=== PATIENT | male | born 1970 | race Caucasian/White ===

== ENCOUNTER 2017-11-12 09:43 | Emergency (ER) | payer OTHER ==
[2017-11-12 10:03] VITALS: BP 157/81
--- NOTE | 2017-11-12 10:10 | ED Physician Documentation ---
General Adult - HISTORIAN Historian: patient - HPI Stated Complaint: wound check possible MRSA Chief Complaint: General Adult Onset: days ago (1) Timing: still present Severity: mild Further Comments: yes (Pt is a 47 yo male with a small abscess on his L wrist. 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 ) - ROS CONST: no problems EYES/ENT: none CVS/RESP: none GI/: none NEURO/PSYCH: other (small 1 cm abscess L wrist) - PAST HX Past History: hypertension, other (MRSA) Surgeries/Procedures: cholecystectomy, other (hernia) Allergies/Adverse Reactions: Allergies Allergy/AdvReac Type Severity Reaction Status Date / Time cyclobenzaprine HCl Allergy Verified 11/12/17 10:03 [From Flexeril] erythromycin base Allergy Verified 11/12/17 10:03 Home Medications: Ambulatory Orders Medication Instructions Recorded Allopurinol [Zyloprim] 100 mg PO DAILY 11/12/17 Lisinopril [Lisinopril] 40 mg PO DAILY 11/12/17 Sulfamethoxazole/Trimethoprim 1 each PO DAILY #14 tablet 11/12/17 [Bactrim Ds] Valacyclovir HCl [Valacyclovir] 1,000 mg PO BID 11/12/17 - SOCIAL HX Smoking History: non-smoker - FAMILY HX Family History: No - VITAL SIGNS Vital Signs: Vital Signs Temp Pulse Resp BP Pulse Ox 97.6 F 97 H 16 157/81 97 11/12/17 09:55 11/12/17 09:55 11/12/17 09:55 11/12/17 09:55 11/12/17 09:55 - REVIEWED ASSESSMENTS Nursing Assessment Reviewed: Yes Vitals Reviewed: Yes Progress - Progress Progress: wound cx - pending Rx Bactrim DS. Take one tablet by mouth every 12 hrs for 7 days. ED Results Lab/Radiology - Orders Orders: ED Orders Category Date Time Status WOUND CULTURE Stat Lab 11/12/17 Ordered General Adult Physical Exam - PHYSICAL EXAM GENERAL APPEARANCE: no distress NECK: normal inspection, supple RESPIRATORY: no resp distress, chest non-tender, breath sounds normal CVS: reg rate & rhythm, heart sounds normal BACK: normal inspection SKIN: other (1 cm abscess L wrist) EXTREMITIES: non-tender, normal range of motion, no evidence of injury NEURO: oriented X3, motor nml, sensation nml Discharge Clincal Impression: small abscess L wrist Prescriptions: Sulfamethoxazole/Trimethoprim [Bactrim Ds] 1 each PO DAILY #14 tablet Referrals: Gatito Duff MD [Primary Care Provider] - Condition: Good Disposition: 01 HOME, SELF-CARE Decision to Admit: NO Decision Time: 10:10
== END 2017-11-12 10:27 | disposition home or self-care (01) ==
LOC: ED 09:43
DX: L02.414 Cutaneous abscess of left upper limb (principal); A49.02 Methicillin resistant Staphylococcus aureus infection, unspecified site
CPT/HCPCS: 87070; 87186; 99282